=== PATIENT | male | born 1965 | race Caucasian/White ===

== ENCOUNTER → 2020-04-19 | Day surgery (SDC) | payer MEDICAID ==
[~2020-04-19] VITALS: Ht 188 cm; Wt 100.3 kg
[2020-04-19] VITALS (10 sets, daily range): BP systolic 97–131; BP diastolic 63–83; PULSE 68–80; TEMP 98.2
[~2020-04-19] MED LIST: ALDACTONE 25MG25 M1 PO; ASPIRIN E.C. 8181 MG PO; FOLIC ACID 11 MG/TA1 PO; LIPITOR 40MG TA40 MG PO; LOPRESSOR 550 MG/TAB PO; PLAVIX 75MG TAB75 MG PO; ZESTRIL 10MG10 MG PO
[2020-04-19 13:18] LABS: HEMATOCRIT 42.8 % (42.0-52.0); HEMOGLOBIN 14.8 g/dl (13.5-18.0); MEAN CELL VOLUME 92 fl (80.0-100.0); MEAN CORPUSCULAR HEMOGLOBIN 32 pg (27.0-31.0); MEAN CORPUSCULAR HGB CONC 35 g/dl (33.0-37.0); MEAN PLATELET VOLUME 10.3 fl (7.4-10.4); PLATELET COUNT 261 K/mm3 (130-400); RED BLOOD COUNT 4.67 M/mm3 (4.20-5.60); REDCELL DISTRIBUTION WIDTH-CV 12.6 % (11.5-14.5)
[2020-04-19 13:20] LABS: INR 1.3 (0.8-3.0); PROTHROMBIN TIME 14.2 SECONDS (9.7-12.8)
[2020-04-19 13:22] LABS: CALCIUM 9.6 mg/dL (8.4-10.2); CREATININE, serum 1.18 (0.66-1.25); POTASSIUM 4.4 mmol/L (3.4-5.0)
--- NOTE | 2020-04-19 14:15 | NUR ---
SEE MERGE FOR ALL MEDICATION ADMINISTRATION TIMES, INTRA AND POST SEDATION ASSESSMENTS
--- NOTE | 2020-04-19 16:15 | NUR ---
Report from Tigre Montalvo.
--- NOTE | 2020-04-19 18:35 | NUR ---
PT HAS COMPLETED HIS ORDERED PERIOD OF BEDREST, RT GROIN SITE IS STABLE, SOFT WITHOUT EVIDENCE OF BLEEDING OR HEMATOMA. CMS INTACT DISTAL. PT IS AMBULATORY IN ROOM WITH STEADY GAIT. I REVIEWED DC INSTRUCTIONS WITH PT AT THIS TIME, HE DIDN'T HAVE ANY QUESTIONS. PT WILL CALL HIS RIDE AND WE WILL CONTINUE TO MONITOR HIS SITE UNTIL RIDE ARRIVES.
--- NOTE | 2020-04-19 19:13 | NUR ---
PT IS AMBULATORY IN HIS ROOM WAITING FOR HIS RIDE. RT GROIN SITE REMAINS SOFT, CMS REMAINS INTACT DISTAL. IV HAS BEEN DC'D WITH CATH INTACT, DRESSING WAS APPLIED. PT DENIES ANY CONCERNS AT THIS TIME.
== END ==
LOC: COL.CAR 12:23
PROVIDERS: Internal Medicine Interventional Cardiology
DX: I25.10 Atherosclerotic heart disease of native coronary artery without angina pectoris (principal); I73.9 Peripheral vascular disease, unspecified; M79.604 Pain in right leg; M79.605 Pain in left leg; I11.0 Hypertensive heart disease with heart failure; I25.2 Old myocardial infarction; I50.22 Chronic systolic (congestive) heart failure; I08.3 Combined rheumatic disorders of mitral, aortic and tricuspid valves; J44.9 Chronic obstructive pulmonary disease, unspecified; G47.33 Obstructive sleep apnea (adult) (pediatric); F17.200 Nicotine dependence, unspecified, uncomplicated; Z79.02 Long term (current) use of antithrombotics/antiplatelets; Z79.899 Other long term (current) drug therapy; Z79.82 Long term (current) use of aspirin; Z95.818 Presence of other cardiac implants and grafts; Z80.9 Family history of malignant neoplasm, unspecified
CPT/HCPCS: C1760; C1769; C1894; J1644; J2250; J3010; Q9967